=== PATIENT | female | born 1980 | race American Indian/Alaskan Native ===

== ENCOUNTER 2019-04-04 13:06 | Emergency (ER) | payer SELFPAY ==
--- NOTE | 2019-04-04 13:56 | Emergency Department Report ---
Chief Complaint: Medical Clearance Stated Complaint: DETOX - HPI History of Present Illness: pt states she has been witout metedone for 2 weeks. states decreased appitite - ROS Review of Systems: all systems reviewed and negative - Exam Physical Exam: AOx3 lungs and heart exams nl, abd SNT MSE screening note: Focused history and physical exam performed. Due to findings the following was ordered: ED Medical Decision Making - Medical Decision Making Pty reffered to [facility] for treatment ED Disposition for MSE Clinical Impression: Opiate withdrawal Disposition: MED SCREENING EXAM-LEFT Is pt being admited?: No Does the pt Need Aspirin: No Condition: Stable Time of Disposition: 13:55
== END 2019-04-04 14:17 | disposition left against medical advice (07) ==
LOC: ED 13:06
DX: F11.23 Opioid dependence with withdrawal (principal)
CPT/HCPCS: 99281